=== PATIENT | female | born 1955 | race Caucasian/White ===

== ENCOUNTER 2022-11-20 07:57 | Outpatient (CLI) | payer OTHER, SELFPAY ==
[2022-11-20 10:39] LABS: Albumin* 4.3 g/dL (3.3-5.0)
[2022-11-20 10:40] LABS: Chloride* 108 mmol/L (96-114); Potassium* 4.3 mmol/L (3.6-5.1); Sodium* 142 mmol/L (135-149)
[2022-11-20 10:42] LABS: Aspartate Amino Transferase* 32 U/L (12-35); Bilirubin Total* 0.7 mg/dL (0.1-1.5); Carbon Dioxide* 27 mmol/L (20-32); Creatinine* 0.8 mg/dL (0.5-1.5); Estimated Glomerular Filt Rate 82 ml/min; Total Protein* 7.2 g/dL (6.0-8.3)
[2022-11-20 10:43] LABS: Alanine Aminotransferase* 24 U/L (4-35); Alkaline Phosphatase* 108 U/L (40-150); Blood Urea Nitrogen* 24 mg/dL (7-30); Calcium* 9.2 mg/dL (8.4-10.6); Glucose* 97 mg/dL (60-115); HDL Cholesterol* 63 mg/dL (>=50); Triglycerides* 146 mg/dL (40-149)
[2022-11-20 18:27] LABS: Cholesterol* 237 mg/dL (90-199); LDL Cholesterol Calculated 145 mg/dL (<100)
== END 2022-11-20 07:58 | disposition home or self-care (01) ==
PROVIDERS: PCP Family Medicine; Visit Provider Family Medicine
DX: Z01.419 Encounter for gynecological examination (general) (routine) without abnormal findings (principal); E03.9 Hypothyroidism, unspecified; E78.5 Hyperlipidemia, unspecified; E55.9 Vitamin D deficiency, unspecified
CPT/HCPCS: 80053; 80061; 84443

== ENCOUNTER 2022-11-22 10:47 | Outpatient (CLI) | payer OTHER, SELFPAY ==
[2022-11-22 14:28] LABS: Vitamin D 25 Hydroxy* 25 ng/mL (30-80)
[2022-11-22 15:03] LABS: Vitamin B12* 996 pg/mL (243-894)
== END 2022-11-22 10:48 | disposition home or self-care (01) ==
LOC: NFLDREF 10:48
PROVIDERS: PCP Family Medicine; Visit Provider Family Medicine
DX: Z00.00 Encounter for general adult medical examination without abnormal findings (principal); E55.9 Vitamin D deficiency, unspecified; E78.5 Hyperlipidemia, unspecified; E03.9 Hypothyroidism, unspecified; Z98.84 Bariatric surgery status
CPT/HCPCS: 82306; 82607

== ENCOUNTER 2024-04-09 14:10 | Outpatient (CLI) | payer MEDICARE, OTHER, SELFPAY | END 2024-04-09 14:11 | disposition home or self-care (01) | LOC: NFLDREF 04-29 10:22 | PROVIDERS: PCP Family Medicine; Referring Provider Family Medicine; Visit Provider Family Medicine | DX: N95.1 Menopausal and female climacteric states (principal); E03.9 Hypothyroidism, unspecified; J45.20 Mild intermittent asthma, uncomplicated; E78.5 Hyperlipidemia, unspecified; E55.9 Vitamin D deficiency, unspecified; M81.0 Age-related osteoporosis without current pathological fracture; Z98.84 Bariatric surgery status | CPT/HCPCS: 80053; 80061; 82306; 84443 ==